=== PATIENT | male | born 2000 ===

== ENCOUNTER 2019-07-23 21:01 | Emergency (ER) | payer OTHER ==
--- NOTE | 2019-07-23 21:34 | RAD ---
XR Knee Lt 4 View STANDARD History: Injury Comparison: None. Findings: No acute fracture or malalignment. Moderate joint effusion. Mild swelling along the infrapa tellar plica. Mild lateral subluxation of the patella. Impression: 1. No acute fracture or malalignment. 2. Mild infrapatellar plica soft tissue edema as well as lateral subluxation of the patella. Nonemerg ent MRI recommended to evaluate for internal derangement clinically warranted.
== END 2019-07-23 21:50 | disposition home or self-care (01) ==
LOC: ERS 21:01
DX: M23.92 Unspecified internal derangement of left knee (principal); W50.0XXA Accidental hit or strike by another person, initial encounter; Y93.66 Activity, soccer